=== PATIENT | female | born 1995 | race Caucasian/White ===

== ENCOUNTER 2022-05-30 15:07 | Emergency (ER) | payer BC, SELFPAY ==
[2022-05-30 15:15] VITALS: BP 128/80; PULSE 98; RESP 16; TEMP 36.8; O2SAT 100
--- NOTE | 2022-05-30 15:20 | ED.URI ---
HPI - URI/Sore Throat General Chief Complaint: Ear Stated Complaint: SORE THROAT/EARACHE Time Seen by Provider: 05/30/22 15:20 Source: patient and RN notes reviewed History of Present Illness HPI Narrative: Patient is a 27-year-old female who presents to urgent care with complaints of sore throat, earache and sinus pressure. Patient denies any fever, nausea or vomiting. Denies any ill exposures. States her symptoms started on Friday. Patient has been taking Tylenol and ibuprofen for pain. No other acute complaints. No acute distress noted. Patient aware of the plan of care. Some parts of this dictation were generated by voice recognition software and may contain typographical and/or grammatical inaccuracies. Related Data Allergies Allergy/AdvReac Type Severity Reaction Status Date / Time Penicillins AdvReac Diarrhea Verified 05/30/22 15:21 Review of Systems Review of Systems: CONSTITUTIONAL: Denies fever, chills, or sweats. EYES: Denies visual changes, redness, or discharge. ENT: Reports of sinus pressure/congestion, bilateral otalgia and sore throat CARDIOVASCULAR: Denies chest pain, palpitations, or edema. RESPIRATORY: Denies cough or dyspnea. GASTROINTESTINAL: Denies abdominal pain, nausea, vomiting, or diarrhea. GENITOURINARY: Denies dysuria or hematuria. SKIN: Denies rash or itching. MUSCULOSKELETAL: Denies back pain, joint pain, or myalgia. NEUROLOGIC: Denies headache, numbness, or weakness. All other systems reviewed are negative, except as documented in HPI. PMFSH Comments At the time of my signature, I reviewed and agree with the nursing past medical, surgical, social, and family history. There is no relevant family history pertinent to the patient complaint. Exam Narrative: GENERAL: This is a well-nourished, well-developed patient, in no apparent distress. HEAD: normocephalic, atraumatic. EYES: PERRL. Sclera clear/white. Vision is grossly intact. EARS: External ears normal, auditory canals clear and without drainage, TMs normal without perforation. Hearing grossly intact. NOSE: External nose normal with no obvious nasal discharge, mild bilateral erythema nares with clear to yellow rhinorrhea THROAT: Mucous membranes moist, mild to moderate erythema to posterior pharynx with exudate noted to the left. NECK: Neck supple, non-tender without lymphadenopathy, masses or thyromegaly. CARDIOVASCULAR: Regular rate and rhythm without murmurs, gallops, or rubs. RESPIRATORY: Clear to auscultation. Breath sounds equal bilaterally. No wheezes, rales, or rhonchi. SKIN: warm, intact with no suspicious lesions or rash, good texture and turgor. NEURO: awake, alert, and oriented to person, place and time. There were no obvious focal neurologic abnormalities. EXTREMITIES: No clubbing, cyanosis, or edema. Course Course Level of Care: Express Care Visit Vital Signs Vital signs: Vital Signs Temperature 98.2 F 05/30/22 15:15 Pulse Rate 98 05/30/22 15:15 Respiratory Rate 16 05/30/22 15:15 Blood Pressure 128/80 05/30/22 15:15 Pulse Oximetry 100 05/30/22 15:15 Oxygen Delivery Room Air 05/30/22 15:15 Temperature 98.2 F 05/30/22 15:15 Pulse Rate 98 05/30/22 15:15 Respiratory Rate 16 05/30/22 15:15 Blood Pressure 128/80 05/30/22 15:15 Pulse Oximetry 100 05/30/22 15:15 Oxygen Delivery Room Air 05/30/22 15:15 Reviewed MDM - URI/Sore Throat MDM Narrative Medical decision making narrative: Reviewed lab results with the patient. Aware that strep swab was negative. Educated patient on culture and we will call within 72 hours if culture is positive antibiotics are necessary. Advised patient to complete the steroid regimen as prescribed. Be sure to eat and drink with medication. Would recommend a daily antihistamine such as Zyrtec/Claritin/Benadryl. Use a humidifier at night. Use Tylenol/ibuprofen as needed. Follow-up with your PCP within 2-5 days or for worsening symptoms or failure t
== END 2022-05-30 15:51 | disposition home or self-care (01) ==
PROVIDERS: Emergency Provider Nurse Practitioner Family; PCP Physician Assistant
DX: J02.9 Acute pharyngitis, unspecified (principal)
CPT/HCPCS: 87081; 87880; 99213; G0463

== ENCOUNTER → 2022-09-05 10:51 | Outpatient (CLI) | payer BC, SELFPAY ==
--- NOTE | ~2022-09-05 | US_ITS ---
Pelvic ultrasound. Clinical History: First trimester , evaluate for dates and viability Technique: Realtime transabdominal and transvaginal scanning of the pelvis was performed. Color flow Doppler and Doppler spectral analysis were performed. Findings: The uterus is anteverted, and contains an intrauterine gestation. [place]-rump length of 3.5 cm corresponds to an estimated gestational age of 10 weeks 5 days. heart rate is 178 bpm. Neither ovary seen. No adnexal mass seen. There is no evidence of free fluid in the cul de sac. Impression: Live intrauterine gestation with estimated gestational age of 10 weeks 5 days. heart rate is 17 8 bpm. Sonographic AMISHA is 03/31/2023. Reviewed, dictated and finalized at location . Impression: Live intrauterine gestation with estimated gestational age of 10 weeks 5 days. heart rate is 178 bpm. Sonographic AMISHA is 03/31/2023.
== END ==
PROVIDERS: PCP Registered Nurse; Visit Provider Registered Nurse
DX: Z34.90 Encounter for supervision of normal pregnancy, unspecified, unspecified trimester (principal)
CPT/HCPCS: 76801

== ENCOUNTER → 2022-09-26 13:53 | Outpatient (CLI) | payer BC, SELFPAY ==
--- NOTE | ~2022-09-26 | US_ITS ---
US axilla RT DATE: 09/26/2022 14:15 INDICATION: Right axillary lump TECHNIQUE: Real-time and color flow imaging of the right axillary soft tissues COMPARISON: None FINDINGS: In the area of concern the right axillary lump there is thickening of the subcutaneous adip ose tissues with increased vascularity on color flow imaging, without discrete mass or fluid collecti on. No suspicious shadowing is noted. Consider infectious or inflammatory process. No abscess is iden tified. A couple of axillary lymph nodes measuring 9 x 12 x 10 and 10 x 16 x 10 mm are noted. IMPRESSION: Nonspecific focal thickening of the subcutaneous adipose tissues with increased vasculari ty, without discrete mass or abscess Reviewed, dictated and finalized at [facility]. Reviewed, dictated and finalized at location [facility]. IMPRESSION: Nonspecific focal thickening of the subcutaneous adipose tissues wi th increased vascularity, without discrete mass or abscess
== END ==
PROVIDERS: PCP Registered Nurse; Visit Provider Registered Nurse
DX: O26.893 Other specified pregnancy related conditions, third trimester (principal); R22.41 Localized swelling, mass and lump, right lower limb; Z3A.00 Weeks of gestation of pregnancy not specified
CPT/HCPCS: 76882

== ENCOUNTER 2022-10-21 09:47 | Emergency (ER) | payer BC, SELFPAY ==
[2022-10-21 09:48] VITALS: BP 130/72; PULSE 91; RESP 16; TEMP 36.4; O2SAT 100
--- NOTE | 2022-10-21 10:21 | ED.GENADULT ---
HPI - General Adult General Chief complaint: Unspecified <Bindu Negron PA-C - Last Filed: 10/21/22 10:28> Stated complaint: 17 weeks , large dog jumped on abd <Bindu Negron PA-C - Last Filed: 10/21/22 10:28> Time Seen by Provider: 10/21/22 10:04 <Bindu Negron PA-C - Last Filed: 10/21/22 10:28> History of Present Illness HPI narrative: 27-year-old female, G1, P0, currently 17 weeks reports for evaluation after 70 pound dog jumped on her abdomen yesterday. She states she had some mild abdominal cramping yesterday which is since resolved and she suspects this this was gas given it resolved after she passed the gas. She has not had any abdominal pain or cramping since. She denies vaginal bleeding, dysuria or hematuria, back pain or fevers. She called Dr. Blackwell's office today and was advised to come to the ED for evaluation. Reports she has had a normal healthy , confirmed IUP, no complications. <Bindu Negron PA-C - Last Filed: 10/21/22 10:28> Related Data Home medications: Home Medications Medication Instructions Recorded Confirmed mike.dorothea ornelas minpwz-mpov-dvdpl 1 tablet PO DAILY 09/23/22 <Bindu Negron PA-C - Last Filed: 10/21/22 10:28> Allergies/adverse reactions: Allergies Allergy/AdvReac Type Severity Reaction Status Date / Time Penicillins AdvReac Diarrhea Verified 10/22/22 15:35 <Bindu Negron PA-C - Last Filed: 10/21/22 10:28> Review of Systems Review of Systems: CONSTITUTIONAL: Denies fever, chills EYES: Denies visual changes, redness, or discharge. ENT: Denies rhinorrhea, congestion, sore throat, or otalgia. CARDIOVASCULAR: Denies chest pain, palpitations, or edema. RESPIRATORY: Denies cough or dyspnea. GASTROINTESTINAL: See HPI GENITOURINARY: Denies dysuria or hematuria. SKIN: Denies rash or itching. MUSCULOSKELETAL: Denies back pain, joint pain, or myalgia. NEUROLOGIC: Denies headache, numbness, dizziness, or weakness. PSYCHIATRIC: Denies anxiety or depression. <Bindu Negron PA-C - Last Filed: 10/21/22 10:28> [facility] Family History Family History: Family History Grandparent Malignant neoplasm of prostate Lung cancer Carcinoma of colon Breast cancer Hypertension Heart disease <Bindu Negron PA-C - Last Filed: 10/21/22 10:28> Social History Social History: Social History Smoking status: Never smoker Alcohol intake: never Substance use: never Lack of Transportation: No Lack of Food: Never True Current Housing: I Have Housing Concerned About Future Housing: No Difficulty Paying Gas/Electric Bills: No Difficulty Paying for Meds: No Currently Unemployed: No Education: Bachelor's Degree Difficulty w/ Childcare or Family Care: No Living arrangements: with family Occupation/Education: occupation Gender identity (if verbalized by the patient): Female Sexual Orientation (if Verbalized by the Patient): Straight or Heterosexual Spiritual care concerns: No <Bindu Negron PA-C - Last Filed: 10/21/22 10:28> Exam Narrative: GENERAL: Well-appearing, in no acute distress. Patient resting comfortably in exam bed. She is pleasant and conversational. HEAD: Normocephalic NECK: Supple. CHEST: No respiratory distress. Clear to auscultation, no adventitious breath sounds. HEART: Regular rate and rhythm. No murmur heard. Normal peripheral pulses. ABDOMEN: Normal active bowel sounds. Abdomen soft and nontender. Gravid abdomen. No CVA tenderness. No overlying skin changes or ecchymosis. EXTREMITIES: Normal range of motion. No edema. SKIN: Warm, dry, no rash. NEURO: No focal deficits. Alert and oriented x3. PSYCH: Normal mood and affect. <Bindu Negron PA-C - Last Filed: 10/21/22 10:28> Course JUDICIAL CLERK/PA Physician Supervision
== END 2022-10-21 10:45 | disposition home or self-care (01) ==
PROVIDERS: Emergency Provider Physician Assistant; PCP Registered Nurse
DX: O26.892 Other specified pregnancy related conditions, second trimester (principal); S39.91XA Unspecified injury of abdomen, initial encounter; Z3A.17 17 weeks gestation of pregnancy; W54.1XXA Struck by dog, initial encounter
CPT/HCPCS: 99282

== ENCOUNTER 2022-12-16 11:51 | Emergency (ER) | payer BC, SELFPAY ==
--- NOTE | 2022-12-16 12:20 | ED.URI ---
HPI - URI/Sore Throat General Chief Complaint: Upper Respiratory Infection Stated Complaint: FEVER/CHILLS/PEACOCK/ACHY/CONSTIPATION 25 WKS Source: patient and RN notes reviewed Mode of arrival: ambulatory Limitations: no limitations History of Present Illness HPI Narrative: 27-year-old female presented for complaint of headache, body aches, constipation, fever/chills. Onset 2 days. Reports temp up to 101.4.States her obgyn advised strep, flu and urine test. Patient had a negative covid test at home yesterday. patient is 25 weeks gestation, endorses normal movement today; denies vaginal bleeding/spotting. Taking Tylenol for headache. Denies sob, wheezing, n/v/d. MD elicited complaint: cough Related Data Home Medications Medication Instructions Recorded Confirmed prenat.vits,dorothea,qhv-[id number]-[id number] 1 tablet PO DAILY 09/23/22 12/16/22 cholecalciferol (vitamin D3) 50 50 mcg PO DAILY 12/16/22 12/16/22 mcg (2,000 unit) tablet doxylamine succinate 25 mg tablet 25 mg PO HS 12/16/22 12/16/22 (Unisom (doxylamine)) Allergies Allergy/AdvReac Type Severity Reaction Status Date / Time Penicillins AdvReac Diarrhea Verified 12/16/22 12:12 Review of Systems Review of Systems: CONSTITUTIONAL: Endorses malaise, chills, sweats, fever EYES: Denies visual changes, redness, or discharge ENT: Reports rhinorrhea, denies sinus pain, otalgia, sore throat CARDIOVASCULAR: Denies chest pain, palpitations, edema RESPIRATORY: Reports cough, post nasal drainage. Denies dyspnea GASTROINTESTINAL: Reports constipation Denies abdominal pain, nausea, vomiting, diarrhea SKIN: Denies rash or itching MUSCULOSKELETAL: Endorses myalgia NEUROLOGIC: Endorses headache PMFSH Family History Family History Grandparent Malignant neoplasm of prostate Lung cancer Carcinoma of colon Breast cancer Hypertension Heart disease Social History Social History Smoking status: Never smoker Alcohol intake: never Substance use: never Lack of Transportation: No Lack of Food: Never True Current Housing: I Have Housing Concerned About Future Housing: No Difficulty Paying Gas/Electric Bills: No Difficulty Paying for Meds: No Currently Unemployed: No Education: Bachelor's Degree Difficulty w/ Childcare or Family Care: No Living arrangements: with family Occupation/Education: occupation Gender identity (if verbalized by the patient): Female Sexual Orientation (if Verbalized by the Patient): Straight or Heterosexual Spiritual care concerns: No Exam Narrative: GENERAL: well-appearing HEAD: Normocephalic EYES: PERRLA, conjunctivae clear ENT: Mucous membranes moist. TMs pearly [place] with dull light reflex bilaterally, Left with clear effusion; no tragal tenderness. Oropharynx not erythematous without lesions or exudate, no drooling, no hoarseness, no trismus, uvula midline. NECK: Supple. No lymphadenopathy CHEST: Clear to auscultation, breath sounds equal. No wheezing, rhonchi, rales, or stridor. No respiratory distress, speaks in full sentences. HEART: Regular rate and rhythm. No murmur heard. ABD: gravid SKIN: Warm, dry, no rash. NEURO: Alert and oriented x3. PSYCH: Normal mood and affect Course Course Emergency Course: Patient is aware of diagnosis, understands and agrees to treatment plan. Anticipatory guidance given. Patient agrees to follow-up as directed and is aware of reasons to seek care at the emergency department. Portions of this record may have been created with voice recognition software Level of Care: Express Care Visit Vital Signs Vital signs: Vital Signs Temperature 98.3 F 12/16/22 12:28 Pulse Rate 102 H 12/16/22 12:28 Respiratory Rate 16 12/16/22 12:28 Blood Pressure 111/82 12/16/22 12:28 Pulse Oximetry 100 12/16/22 12:28 Temperature 98.3 F
[2022-12-16 12:28] VITALS: BP 111/82; PULSE 102; RESP 16; TEMP 36.8; O2SAT 100
== END 2022-12-16 12:42 | disposition home or self-care (01) ==
PROVIDERS: Emergency Provider Nurse Practitioner Family; PCP Obstetrics & Gynecology
DX: O98.512 Other viral diseases complicating pregnancy, second trimester (principal); B34.9 Viral infection, unspecified; Z3A.25 25 weeks gestation of pregnancy
CPT/HCPCS: 81003; 87081; 87804; 87880; 99213; G0463

== ENCOUNTER 2022-12-27 12:19 | Outpatient (CLI) | payer BC, SELFPAY | END 2022-12-27 12:20 | disposition home or self-care (01) | LOC: ANHGOSHLAB 01-07 12:20 | PROVIDERS: PCP Obstetrics & Gynecology; Visit Provider Emergency Medicine | DX: O99.891 Other specified diseases and conditions complicating pregnancy (principal); Z3A.00 Weeks of gestation of pregnancy not specified | CPT/HCPCS: 36415; 86762; 86765 ==

== ENCOUNTER 2023-01-15 08:29 | Outpatient (CLI) | payer BC, SELFPAY ==
[2023-01-15 08:53] LABS: Glucose Point of Care 89 mg/dl (65-105)
[2023-01-15 19:18] LABS: Glucose 1 Hour Gest 185 mg/dL (>/=180)
[2023-01-15 19:18] LABS: Glucose 2 Hour Gest 142 mg/dL (>/= 155)
[2023-01-15 19:19] LABS: Glucose 3 Hour Gest 147 mg/dL (>/=140)
== END 2023-01-15 08:30 | disposition home or self-care (01) ==
LOC: ANHGOSHLAB 08:30
PROVIDERS: PCP Obstetrics & Gynecology; Visit Provider Registered Nurse
DX: O99.810 Abnormal glucose complicating pregnancy (principal); Z3A.00 Weeks of gestation of pregnancy not specified
CPT/HCPCS: 36415; 82948; 82951; 82952

== ENCOUNTER 2023-02-06 14:45 | Outpatient (RCR) | payer BC, SELFPAY ==
[2023-02-06 14:45] VITALS: BMI 28.7
[2023-02-06 14:47] VITALS: BMI 28.7
== END 2023-04-21 12:35 | disposition home or self-care (01) ==
LOC: ANHDMC 14:45
PROVIDERS: PCP Obstetrics & Gynecology; Visit Provider Obstetrics & Gynecology
DX: O24.419 Gestational diabetes mellitus in pregnancy, unspecified control (principal); Z3A.00 Weeks of gestation of pregnancy not specified; Z71.89 Other specified counseling; Z71.3 Dietary counseling and surveillance
CPT/HCPCS: 97802; G0108

== ENCOUNTER 2023-02-27 14:56 | Outpatient (CLI) | payer BC, SELFPAY ==
[2023-02-27 16:12] LABS: HIV 1/2 Ab P24 Ag Result Negative (Negative)
== END 2023-02-27 14:57 | disposition home or self-care (01) ==
LOC: ANHLAB 14:58
PROVIDERS: PCP Emergency Medicine; Visit Provider Registered Nurse
DX: Z34.90 Encounter for supervision of normal pregnancy, unspecified, unspecified trimester (principal)
CPT/HCPCS: 36415; 86703; G0432

== ENCOUNTER 2023-03-19 16:24 | Inpatient (IN) | payer BC, SELFPAY ==
[2023-03-19] VITALS (81 sets, daily range): BP systolic 113–148; BP diastolic 56–97; PULSE 25–109; O2SAT 85–100; BMI 29.9
--- NOTE | 2023-03-19 16:59 | LDADM ---
This patient, Scarlet Cai, was admitted to Labor/Delivery/Recovery 106 on 03/19/23 at 16:24. Plans for labor, pain management and were discussed with patient. Patient/family oriented to hospital policies and general routines including ID bracelet, bed and alarms, visiting hours, pain management, procedures, bathroom and other care routines, personal items, smoking policy, room service/diet and guest tray routines, infant security routines, and visiting hours. Patient/Family are encouraged to report perceived risks to care and to ask questions if they do not understand what they are told or what they should do. See OBIX for further documentation.
[2023-03-19 17:07] LABS: Basophils Percent Auto 0.3 % (0.2-1.2); Eosinophils Absolute Auto 0.1 K/mm3 (0-0.3); Eosinophils Percent Auto 1.2 % (0-4.4); Hematocrit 39.1 % (37.0-47.0); Hemoglobin 13.5 g/dL (12.0-15.0); Immature Granulocyte Absolute 0.06 K/mm3 (0.00-0.031); Immature Granulocyte Percent A 0.5 % (0-0.5); Lymphocytes Percent Auto 20.8 % (18.3-44.2); Mean Corpuscular HGB Conc 34.5 g/dl (32-36); Mean Corpuscular Hemoglobin 32.1 pg (26-34); Mean Corpuscular Volume 93.1 fl (80-100); Mean Platelet Volume 10.5 fl (7.4-10.4); Monocytes Absolute Auto 0.9 K/mm3 (0.1-0.6); Monocytes Percent Auto 7.1 % (2.6-8.5); Neutrophils Absolute Auto 8.4 K/mm3 (1.3-6.7); Neutrophils Percent Auto 70.1 % (45.5-73.1); Platelet Count Result 204 k/mm3 (150-375); Red Cell Distribution Width 12.5 % (11.5-14.5)
[2023-03-19] MEDS: LACTATED RINGERS 1,000 ML 125 ML IV CONT ×2 (17:14→19:22)
--- NOTE | 2023-03-19 18:01 | WPDANESEPP ---
Anes - Eval Pre Procedure Procedure: labor epidural Date/Time: 03/19/23 18:01 Surgeon: lynn Preop Diagnosis: pain during labor Pre Op Diagnosis: contractions Patient Data Age: 27 Gender: F Height: 1.6 m Weight: 76.8 kg Last Vital Signs Pulse 90 03/19/23 17:47 BP 125/79 03/19/23 17:47 O2 Del Method Room Air 03/19/23 16:56 Allergies Allergy/AdvReac Type Severity Reaction Status Date / Time Penicillins AdvReac Diarrhea Verified 03/13/23 14:33 Home Medications Medication Instructions Recorded Confirmed Type prenat.vits,dorothea,abw-yclc-ewori 1 tablet PO DAILY 09/23/22 03/19/23 History cholecalciferol (vitamin D3) 50 50 mcg PO DAILY 12/16/22 03/19/23 History mcg (2,000 unit) tablet doxylamine succinate 25 mg tablet 25 mg PO HS 12/16/22 03/19/23 History (Unisom (doxylamine)) blood-glucose meter (OneTouch #1 ea 01/16/23 Rx Verio Flex Meter) lancets 33 gauge (Lite Touch #100 ea 01/16/23 Rx Lancets) blood sugar diagnostic (OneTouch #100 ea 02/10/23 Rx Verio test strips) Laboratory Tests 03/19/23 17:01 WBC 12.0 H K/mm3 (4.5-10.0) RBC 4.20 M/mm3 (4.2-5.4) Hgb 13.5 g/dL (12.0-15.0) Hct 39.1 % (37.0-47.0) MCV 93.1 fl (80-100) MCH 32.1 pg (26-34) MCHC 34.5 g/dl (32-36) RDW 12.5 % (11.5-14.5) Plt Count 204 k/mm3 (150-375) MPV 10.5 H fl (7.4-10.4) Immature Gran % (Auto) 0.5 % (0-0.5) Neut % (Auto) 70.1 % (45.5-73.1) Lymph % (Auto) 20.8 % (18.3-44.2) [place] % (Auto) 7.1 % (2.6-8.5) Eos % (Auto) 1.2 % (0-4.4) Baso % (Auto) 0.3 % (0.2-1.2) Lymph # (Auto) 2.50 K/mm3 (0.9-3.2) [place] # (Auto) 0.9 H K/mm3 (0.1-0.6) Eos # (Auto) 0.1 K/mm3 (0-0.3) Baso # (Auto) 0.0 K/mm3 (0.0-0.1) Abs Immat Gran (auto) 0.06 H K/mm3 (0.00-0.031) Absolute Neuts (auto) 8.4 H K/mm3 (1.3-6.7) Absolute Nucleated RBC 0.0 K/mm3 (0.0-0.012) Nucleated RBC % 0.0 % (0.0-0.2) RPR Pending Patient hx anesthesia problems: none Family hx anesthesia problems: none Results Review: All pre-operative results and documents have been reviewed as part of the pre-operative evaluation. [facility] Family History Family History Grandparent Malignant neoplasm of prostate Lung cancer Carcinoma of colon Breast cancer Hypertension Heart disease Social History Social History Smoking status: Never smoker Second hand tobacco smoke exposure: No Alcohol intake: never Substance use: never Lack of Transportation: No Lack of Food: Never True Current Housing: I Have Housing Concerned About Future Housing: No Difficulty Paying Gas/Electric Bills: No Difficulty Paying for Meds: No Currently Unemployed: No Education: Master's Degree or Higher Difficulty w/ Childcare or Family Care: No Living arrangements: with family Occupation/Education: occupation Gender identity (if verbalized by the patient): Female Sexual Orientation (if Verbalized by the Patient): Straight or Heterosexual Spiritual care concerns: No Exam Day of Procedure 03/19/23 18:01
--- NOTE | 2023-03-19 22:06 | PM.IMHP ---
H&P: HPI History of Present Illness Date/Time: 03/19/23 22:06 Chief Complaint: Leaking of fluid Narrative: Patient at 38 weeks admitted for SROM clear, irregular contractions. PNC significant for diet controlled gestational diabetes. GBS neg. Review of Systems Review of Systems: All systems reviewed & are unremarkable except as noted in HPI and below Constitutional: Constitutional: Reports no additional constitutional complaints and Denies headache(s) Eyes: Eyes: Denies spots in vision ENT: Reports system reviewed and no additional complaints, except as documented and Denies headache(s) Cardiovascular: Cardiovascular: Denies chest pain and Denies dyspnea Respiratory: Respiratory: Denies dyspnea Gastrointestinal: Gastrointestinal: Reports no additional gastrointestinal complaints Genitourinary: Genitourinary: Reports amenorrhea Musculoskeletal: Musculoskeletal: Reports no additional musculoskeletal complaints Integumentary/Breasts: Skin/Breast: Denies breast mass and Denies rash Neurologic: Denies headache(s) Psychiatric: Psychiatric: Reports no additional psychiatric complaints [facility] Family History Family History Grandparent Malignant neoplasm of prostate Lung cancer Carcinoma of colon Breast cancer Hypertension Heart disease Social History Social History Smoking status: Never smoker Second hand tobacco smoke exposure: No Alcohol intake: never Substance use: never Lack of Transportation: No Lack of Food: Never True Current Housing: I Have Housing Concerned About Future Housing: No Difficulty Paying Gas/Electric Bills: No Difficulty Paying for Meds: No Currently Unemployed: No Education: Master's Degree or Higher Difficulty w/ Childcare or Family Care: No Living arrangements: with family Occupation/Education: occupation Gender identity (if verbalized by the patient): Female Sexual Orientation (if Verbalized by the Patient): Straight or Heterosexual Spiritual care concerns: No Meds Home Medications and Allergies Home Medications Medication Instructions Recorded Confirmed Type prenat.vits,dorothea,[id number]-[id number]-zrjxn 1 tablet PO DAILY 09/23/22 03/19/23 History cholecalciferol (vitamin D3) 50 50 mcg PO DAILY 12/16/22 03/19/23 History mcg (2,000 unit) tablet doxylamine succinate 25 mg tablet 25 mg PO HS 12/16/22 03/19/23 History (Unisom (doxylamine)) blood-glucose meter (OneTouch #1 ea 01/16/23 Rx Verio Flex Meter) lancets 33 gauge (Lite Touch #100 ea 01/16/23 Rx Lancets) blood sugar diagnostic (OneTouch #100 ea 02/10/23 Rx Verio test strips) Allergies Allergy/AdvReac Type Severity Reaction Status Date / Time Penicillins AdvReac Diarrhea Verified 03/13/23 14:33 Vital Signs Vital Signs - 24 hr 03/19/23 16:56 03/19/23 17:01 03/19/23 17:16 Pulse Rate 95 85 Blood Pressure 126/87 126/81 Pulse Oximetry Oxygen Delivery Room Air 03/19/23 17:31 03/19/23 17:46 03/19/23 18:01 Pulse Rate 93 90 89 Blood Pressure 141/87 H 125/79 131/73 Pulse Oximetry Oxygen Delivery 03/19/23 18:16 03/19/23 18:31 03/19/23 18:46 Pulse Rate 87 82 78 Blood Pressure 134/77 131/79 145/75 H Pulse Oximetry Oxygen Delivery 03/19/23 19:01 03/19/23 19:16 03/19/23 19:31 Pulse Rate 87 78 80 Blood Pressure 133/78 146/77 H 133/69 Pulse Oximetry Oxygen Delivery 03/19/23 19:43 03/19/23 19:44 03/19/23 19:46 Pulse Rate 87 83 Blood Pressure 146/81 H 148/74 H Pulse Oximetry 85 L Oxygen Delivery 03/19/23 19:48 03/19/23 19:51 03/19/23 19:53 Pulse Rate 85 86 Blood Pressure 144/89 H 131/84 Pulse Oximetry 96 100 Oxygen Delivery 03/19/23 19:53 03/19/23 19:53 03/19/23 19:54 Pulse Rate 97 Blood Pressure 144/89 H Pulse Oximetry 98 99 Oxygen Delivery 03/19/23 19:56 03/19/23 19:58
[2023-03-19] MEDS: OXYTOCIN 30 UNITS/NS 500 ML 30 UNITS/500 ML BAG 6 UNITS IV CONT (23:05)
[2023-03-19] MEDS: ONDANSETRON INJ 4 MG/2 ML VIAL IV PUSH (23:12)
[2023-03-20] VITALS (60 sets, daily range): BP systolic 99–132; BP diastolic 54–106; PULSE 53–145; RESP 16–18; TEMP 36.4–37.2; O2SAT 86–100
[2023-03-20 00:36] LABS: Glucose Point of Care 83 mg/dl (65-105)
[2023-03-20] MEDS: LACTATED RINGERS 1,000 ML 125 ML IV CONT (00:37)
--- NOTE | 2023-03-20 03:17 | P.PCNOB_ITS ---
OB - Vaginal Delivery Note Procedure Delivery date: 03/20/23 Events: Gestational Diabetes (diet controlled) Delivery augmentation: Pitocin Delivery monitor: External FHT Route of delivery: Laceration Description: Superficial (perineal) Delivery repair: vicryl (3.0 vicryl) Specimen: No Quantitative Blood Loss (ml): 150 Anesthesia type: Epidural Disposition: Floor Complications: No immediate complications Narrative: She was admitted to [facility] [place] after confirmed SROM. She had Pitocin augmentation. She had epidural placed on request. She dilated to complete. She pushed for over an hour and delivered a female over intact perineum. 's nose and mouth suctioned with bulb at perineum. Infant's anterior shoulder delivered with gentle traction and the rest of the delivered. was vigorously crying and placed on maternal abdomen. There was a small superficial laceration at right outside of introitus which required a figure of eight O vicryl for hemostasis. Hemostasis noted. Placenta delivered spontaneously and intact. [place] Baby Date of : 03/20/23 Time of : 02:59 Weeks of gestation at delivery: 38 gender: Female presentation: vertex position: Left Occiput Anterior Placenta delivery description: Spontaneous Cord Vessel Description: 3 Vessels, Clamped/Cut and Delayed Cord Clamping score one minute: 9 score five minutes: 9 AMG Delivery Billing Delivery Delivery: Delivery Charge
[2023-03-20] MEDS: OXYTOCIN 30 UNITS/NS 500 ML 30 UNITS/500 ML BAG 125 UNITS IV CONT (03:35)
--- NOTE | 2023-03-20 05:18 | PC.NURSE ---
Patient transferred to post room #280 per wheelchair from labor and delivery. Support person present. Oriented to unit, room, information board, rooming in, admission packet and security measures. Patient verbalizes understanding.
[2023-03-20] MEDS: IBUPROFEN 600 MG TABLET PO ×2 (09:00→16:15)
[2023-03-20] MEDS: DOCUSATE SODIUM 100 MG CAPSULE PO ×2 (09:00→16:15)
[2023-03-20] MEDS: MULTIVIT/MIN/PREN/FOL AC/IRON TABLET 1 TAB PO (09:00)
[2023-03-20] MEDS: POLYSACCHARIDE IRON COMPLEX 150 MG CAPSULE PO ×2 (09:00→16:15)
--- NOTE | 2023-03-20 12:21 | PC.NURSE ---
[id number] RN purposefully rounded to introduce and assess needs. Mother states she is waiting for a blood sugar check. Blood sugar results with RN at 56mg/dl while infant is [id number] with mother. Mother led the conversation with her?plans to feed?her infant and the?experience so far. Encouraged understanding of the benefits of skin to skin (demonstrating unwrapping and placing upright on her chest), stimulating with massage touch, changing positions to encourage wakefulness, how to watch for early feeding cues, responsive feeding, feeding on demand (aiming for 8-12 times in 24 hours, about every 2-3 hours), milk production, hand expression (easily produces big drops of colostrum that are finger fed to infant), building/maintaining a milk supply, duration of feeding, signs of adequate intake/output and how to record on the feeding sheet. Mother works well with her infant with encouragement and education. Reviewed positioning and ear, shoulder, hip alignment, supporting the breast to facilitate a deep latch, asymmetrical latch (off-center), leading with the chin with a big, open, wide gape and body close to mother. latched optimally to the right, then the left breast in cross cradle position. Education given to the mother of how to visualize the suckling (with good rocking jaw motion), swallows (dropping of the lower jaw) and how to listen for drinking at the breast (the ka sound). Infant was able to maintain latch without pain to mother protecting the nipple with optimal positioning and latching demonstrating swallowing in 1:1 and 2:1 suck/swallow ratios. Reviewed comfort measures of healing with a warm, wet washcloth to rinse breast, then leave open to air-dry, good handwashing when or touching the breast/nipples to prevent infection. Mother voiced understanding of skin to skin, stimulating with massage touch, responsive feedings, hand expressed colostrum, talking to to encourage if it has been 2 -2.5 hours since the start of the last , to call if infant does not latch, or if there is discomfort with . Resources used for education were facilitated with the visual educational handouts, tool. Inpatient/outpatient resources provided with feeding sheet, name written on the communication board, and the mom/baby guide. Parents voiced understanding of information, demonstrated learning and will call if there is a request for assistance. Reported to the Primary RN.
[2023-03-20 14:08] LABS: Rapid Plasma Reagin Non-Reactive (NonReactive)
[2023-03-20] MEDS: ACETAMINOPHEN 325 MG TABLET 650 MG PO (20:18)
[2023-03-21] MEDS: IBUPROFEN 600 MG TABLET PO (04:29)
[2023-03-21 05:29] LABS: Hematocrit 35.2 % (37.0-47.0); Hemoglobin 11.8 g/dL (12.0-15.0)
--- NOTE | 2023-03-21 08:28 | PM.OBPNVD ---
OB - PN: Subj Subjective Date/time seen: 03/21/23 08:28 Patient comments: pain well controlled, tolerating diet and other (Decreasing lochia.) baby status: doing well and nursing well OB - PN: Obj Data Labs 03/21/23 04:32 Labs: Laboratory Results - last 24 hr 03/19/23 03/21/23 17:01 04:32 Hgb 11.8 L Hct 35.2 L RPR Non-reactive OB - PN A/P Assessment and Plan (1) Vaginal delivery: Code(s): O80 - Encounter for full-term uncomplicated delivery Status: Acute Assessment and Plan: Doing well. She request discharge today. Discharge precautions discussed. Plan day: 1 Plan: routine care Comments: Patient doing well. Time Spent With Patient Time: Total time spent is greater than 50% in coordination of care (as documented) at patient's floor/unit and/or counseling patient: Exam Psych: Affect: normal affect Other: Abd: fundus firm below umbilicus, nontender Perineum: healing Ext: nontender
[2023-03-21 09:05] VITALS: BP 104/57; PULSE 67; RESP 18; TEMP 36.4; O2SAT 97
[2023-03-21] MEDS: DOCUSATE SODIUM 100 MG CAPSULE PO (09:47)
[2023-03-21] MEDS: POLYSACCHARIDE IRON COMPLEX 150 MG CAPSULE PO (09:47)
[2023-03-21] MEDS: ACETAMINOPHEN 325 MG TABLET 650 MG PO (09:47)
[2023-03-21] MEDS: MULTIVIT/MIN/PREN/FOL AC/IRON TABLET 1 TAB PO (09:47)
--- NOTE | 2023-03-21 11:38 | WPDANLDPN2 ---
Anes-Prog Note L&D Date/Time: 03/21/23 11:38 Comfortable throughout: labor and delivery Neuraxial method: epidural Epidural/Spinal procedure site: clean & non-tender Neuro status: Neuro function grossly intact. Cardiovascular status: normal Respiratory status: normal Airway patency: baseline Mental status: baseline Post-Op hydration status: normal Vital Signs: Last Vital Signs Temp 97.5 F L 03/21/23 09:05 Pulse 67 03/21/23 09:05 Resp 18 03/21/23 09:05 BP 104/57 L 03/21/23 09:05 Pulse Ox 97 03/21/23 09:05 O2 Del Method Room Air 03/19/23 16:56 Pain score (VAS): 0 Post-procedural complaints: none Patient feedback: Patient satisfied with anesthetic care.
[2023-03-21] MEDS: MEASLES,MUMPS,RUBELLA VACCINE 0.5 ML VIAL SUB-Q (13:22)
--- NOTE | 2023-03-21 13:51 | PM.OBDSVD ---
DS: Admitting Diagnosis Discharge Date 03/21/23 Admitting Diagnosis Spontaneous rupture of membrane DS: Discharge Diagnosis Discharge Diagnosis (1) Vaginal delivery: Code(s): O80 - Encounter for full-term uncomplicated delivery Status: Acute OB - DS: Summary Hospital Course Hospital Course: She was admitted to [facility] for spontaneous rupture of membranes. She had an uncomplicated vaginal delivery. She did well . She had adequate pain control. She was tolerating regular diet and ambulating without problem. Baby did well . She was discharge to home on day 1. OB Procedures : Ultrasound OB Procedures Intrapartum: Spontaneous Vag Delivery OB Procedures: : None Peripartum Data Laceration Description: Superficial (perineal) Time Spent with Patient Time attestation: Total time spent providing and/or coordinating discharge services: DS: Data Data Completed and Pending Labs on day of discharge: Labs from last 24 hours 03/21/23 03/19/23 04:32 17:01 Hgb 11.8 L Hct 35.2 L RPR Non-reactive Discharge Plan Discharge Attending physician on discharge: Teja Blackwell Consulting providers: Tracey Vidal; Linda Yusuf Discharging Clinician: Teja Blackwell Anticipated Discharge Date/Time: 03/21/23 08:24 Patient Disposition: Home, Self-Care Activity: may shower, no straining and pelvic rest Diet: regular Discharge Instructions: Education: Mom and Baby Guide Given to: Mother Follow-Up: Call your delivering provider's office for an appointment to be seen in: 4 Weeks Mom and baby should come to the [facility] for the follow-up appointment. Appointment Date/Time: March 22, 2023 at 8:00 am What to expect at your follow-up visit: Blood Pressure Check Physical Assessment Call [phone] if you are unable to keep your appointment time. BREAST CARE: * Wear a snug supportive bra. * For engorgement discomfort: Breast Feeding: * Apply warm moist washcloths * Express milk as needed to relieve engorgement * Wear loose clothing Bottle Feeding: * May apply ice packs * For sore nipples: * Identify correct latch-on * Apply warm moist washcloths before and after nursing * Air dry nipples after nursing * May apply Lansinoh cream to nipples EPISIOTOMY/PERINEAL CARE: * Until bleeding stops, use your maggie bottle after urinating * Change your pad frequently throughout the day * You may take sitz baths several times a day (fill your bathtub with warm water and soak for 20 minutes.) Do NOT bathe in the water * No tub baths until seen by your physician - You may shower ACTIVITY: * Rest as much as possible. * Do not exercise or lift anything heavier than your baby (such as laundry or other children.) * Avoid stairs or driving as much as possible. * Do not put anything into the vagina. No douching, tampons, or sexual activity until seen by physician. NOTIFY PHYSICIAN IF YOU HAVE ANY QUESTIONS OR IF ANY OF THE FOLLOWING SYMPTOMS OCCUR: * If your vaginal area becomes red, swollen, or more painful than what you have experienced in the hospital. * If your vaginal bleeding becomes foul smelling. * If your vaginal bleeding becomes more heavy than a period or if your bleeding changes from pink to bright red. However, you may pass an occasional walnut-sized clot once or twice for the first week . * If you experience a sharp, shooting pain in your calves. * If you discover a hard, reddened area on your breast or if you experience flu-like symptoms. DIET: * Eat regular, well-balanced meals. * Drink plenty of fluids daily. Stand Alone Forms: General Discharge Information Follow-up/Referrals: Teja Blackwell MD [Physician] - 4 Weeks (Call for appointment) Discharge Medications: Continued [email or web address]
[2023-03-22 08:26] VITALS: BP 128/63; PULSE 97; RESP 18; TEMP 36.7; O2SAT 98
== END 2023-03-21 13:40 | disposition home or self-care (01) | DRG 807 ==
LOC: ANHLDR 16:47 → ANHOB2 03-20 05:20
PROVIDERS: Admitting Provider Obstetrics & Gynecology; PCP Emergency Medicine; Visit Provider Obstetrics & Gynecology
DX: O24.420 Gestational diabetes mellitus in childbirth, diet controlled (principal); Z37.0 Single live birth; Z3A.38 38 weeks gestation of pregnancy; Z23 Encounter for immunization; O70.0 First degree perineal laceration during delivery
CPT/HCPCS: 36415; 82948; 84112; 85014; 85018; 85025; 86592; 86850; 86900; 86901; 90471; 90686; 90710; A9270; G0008; J2405; J2590; J2795; J7120

== ENCOUNTER 2023-06-27 09:29 | Outpatient (CLI) | payer BC, SELFPAY ==
[2023-06-27 14:53] LABS: Glucose 2 Hour 80 mg/dL
[2023-06-27 14:56] LABS: Glucose 1 Hour 75 mg/dL
== END 2023-06-27 09:30 | disposition home or self-care (01) ==
LOC: ANHGOSHLAB 09:31
PROVIDERS: PCP Emergency Medicine; Visit Provider Obstetrics & Gynecology
DX: O24.419 Gestational diabetes mellitus in pregnancy, unspecified control (principal); Z3A.00 Weeks of gestation of pregnancy not specified
CPT/HCPCS: 36415; 82951